=== PATIENT | male | born 1970 | race African-American/Black ===

== ENCOUNTER 2017-12-10 03:52 | Emergency (ER) | payer MEDICARE, MEDICAID ==
[~2017-12-10] VITALS: Ht 182.9 cm; Wt 98.0 kg
[2017-12-10] MEDS ORDERED: ALBUTEROL2.5 MG/3 M INH (04:08)
[2017-12-10 04:23] VITALS: BP 101/68
[2017-12-10] MEDS ORDERED: IBUPROFEN800 MG ORAL (04:34)
[2017-12-10] MEDS ORDERED: CYCLOBENZAPRINE10 MG ORAL (04:34)
[2017-12-10 04:37] VITALS: BP 101/68
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
== END 2017-12-10 04:37 | disposition home or self-care (01) ==
LOC: EMR 04:16
DX: S39.012A Strain of muscle, fascia and tendon of lower back, initial encounter (principal); J45.909 Unspecified asthma, uncomplicated; V43.52XA Car driver injured in collision with other type car in traffic accident, initial encounter; Y92.410 Unspecified street and highway as the place of occurrence of the external cause
CPT/HCPCS: 99284

== ENCOUNTER 2019-06-02 01:16 | Emergency (ER) | payer MEDICARE, MEDICAID ==
[~2019-06-02] VITALS: Ht 185.4 cm; Wt 102.1 kg
[~2019-06-02 01:16] MED LIST: ALBUTEROL2.5 MG/3 M INH; CYCLOBENZAPRINE10 MG ORAL; IBUPROFEN800 MG ORAL
[2019-06-02] MEDS: Albuterol/Ipratropium 3ml neb HHN SCH ×3 (01:34→01:55)
--- NOTE | 2019-06-02 01:45 | NUR ---
ED Nurse Note: Recieved pt on guranalisa awake, alert and oriented x 4, pt here from home with c/o sob x 2-3 days, pt has asthma, deneis fevers, pain, nausea or vomiting or any other complaints or discomforts, tp gowned and placed on monitoring, o2 sat=97%, wheezes heard bilat, will continue to closely monitor.
--- NOTE | 2019-06-02 02:43 | NUR ---
ED Nurse Note: patient resting in bed with nad. AO4. respiration even and unlabored. vss
[2019-06-02 02:44] VITALS: BP 114/79
--- NOTE | 2019-06-02 02:45 | Diagnostic Imaging Report ---
EXAM: XR Chest, 1 View CLINICAL HISTORY: SOB TECHNIQUE: Frontal view of the chest. COMPARISON: No relevant prior studies available. FINDINGS: Lungs: No consolidation or mass. Pleural space: No acute findings Heart: No cardiomegaly. Mediastinum: Unremarkable. Bones/joints: No acute findings. IMPRESSION: No acute cardiopulmonary process.
[2019-06-02] MEDS ORDERED: Albuterol ud Inhalation HHN ONE (03:00)
--- NOTE | 2019-06-02 03:00 | NUR ---
ED Nurse Note: RT AT BEDSIDE FOR BREATHING TX.
[2019-06-02] MEDS ORDERED: PREDNISONE20 MG ORAL (03:34)
[2019-06-02] MEDS ORDERED: ALBUTEROL SULF8.5 GM INH (03:34)
--- NOTE | 2019-06-02 03:36 | Emergency Room Report ---
History of Present Illness General Chief Complaint: Upper Respiratory Illness Present Illness [facility] Disclaimer: Please note that this report is being documented using DRAGON technology. This can lead to erroneous entry secondary to incorrect interpretation by the dictating instrument. HPI: Is a 40-year-old male with history of asthma presenting for evaluation of shortness of breath. Patient has been feeling increased shortness of breath with a nonproductive cough for the past 7 days however proximal me 3 days ago he ran out of his albuterol inhaler has had increasing symptoms. He denies fever. Noted increased wheezing today and difficulty breathing prompting him to call emergency medical services. No recent steroid use. Otherwise denies any abdominal pain, vomiting, skin rash or other change in his health PMH: Asthma PSH: Ear surgery Allergies: Denies Social Hx: Denies drug or alcohol abuse Allergies: Coded Allergies: No Known Allergies (Unverified , 12/10/17) Nursing Documentation-PMH Hx Asthma: Yes Review of Systems All Other Systems: negative except mentioned in HPI Physical Exam Vital Signs Date Time Temp Pulse Resp B/P (MAP) Pulse Ox O2 Delivery O2 Flow Rate FiO2 06/02/19 01:23 98.4 85 20 127/77 (94) 96 Room Air 06/02/19 01:33 21 General: Awake and alert, mild distress HEENT: NC/AT. EOMI. Neck: Supple, trachea midline Chest Wall: No tenderness, no deformity Cardiovascular: RRR. S1 and S2 normal. No murmur appreciated Resp: Increased work of breathing. Diffuse wheezes and crackles at the bases. No stridor. Intermittent cough during exam. Abdomen: Abdomen is soft, nondistended. Nontender Skin: Intact. No abrasions, laceration or rash over the exposed skin MSK: Normal tone and bulk. Moving all extremities. No obvious deformity. Neuro: Awake and alert. Mentating appropriately. Medical Decision Making Diagnostic Impression: Primary Impression: Asthma exacerbation ER Course This 40-year-old male presenting for evaluation of shortness of breath. Differential includes was not limited to pneumonia, asthma exacerbation, bronchitis, COPD, pneumothorax, pneumonitis. Of these, asthma exacerbation is most likely. We will start nebulizer treatments and give steroids. X-ray ordered. Patient is overall stable and only mild distress. He has reduced air entry bilaterally though oxygen saturation is normal. Do not believe lab work is indicated at this time but can advance work-up based on imaging results and patient improvement. Chest X-Ray Diagnostic Results Chest X-Ray Diagnostic Results : Chest X-Ray Ordered: Yes # of Views/Limited/Complete: 1 View Indication: Shortness of Breath PA Xray: Interpretation reviewed Interpretation: no consolidation, no effusion, no pneumothorax, no acute cardiopulmonary disease Impression: No acute disease Electronically Signed by: Electronically signed by Dr. Levon Talbert Reevaluation Time: 03:35 Last Vital Signs Date Time Temp Pulse Resp B/P (MAP) Pulse Ox O2 Delivery O2 Flow Rate FiO2 06/02/19 03:18 87 19 100 Room Air 21 85 17 98 06/02/19 02:44 98.4 114/79 Status: improved Reevaluation Impression Patient improved dramatically after receiving 3 DuoNeb treatments and 1 subsequent albuterol. No consolidation, effusion or other major abnormalities appreciated on chest x-ray. Patient will be treated as an outpatient by refilling his albuterol inhaler starting him on 5 days of prednisone. Follow- up with his PMD to discuss this emergency department visit for asthma exacerbation. We discussed reasons to return to the emergency department. He understands and agrees with this treatment plan. Disposition: HOME, SELF-CARE Condition: Improved Scripts Prednisone* (PREDNISONE*) 20 Mg Tablet 40 MG ORAL DAILY for 5 Days, #10 TAB Prov: Levon Talbert MD 06/02/19 Albuterol Sulfate* (ALBUTEROL SULFATE MDI*) 8.5 Gm Hfa.aer.ad 2 PUFF INH Q4H PRN for cough/wheezing, #1 EA 0 Refills Prov: Levon Talbert MD 06/02/19 Referrals: [facility] Patient Instructions: Asthma, Adult Additional Instructions: You are treated for an asthma exacerbation in the emergency department today. Will refill your albuterol inhaler and start you on 5 days of prednisone. Please follow-up with your doctor immediately to discuss this emergency department visit or follow-up with 1 of the doctors at the clinics listed here in your discharge paperwork. If you have any worsening shortness of breath, worsening cough, develop fever, chest pain or any other sudden change in your health please return to the emergency department for reevaluation Levon Talbert MD Jun 02, 2019 03:36
--- NOTE | 2019-06-02 03:45 | NUR ---
ER DISCHARGE NOTE: Patient is cleared to be discharged per ERMD, pt is aox4, on room air, with stable vital signs. pt was given dc and prescription instructions, pt was able to verbalize understanding, pt id band removed without complications. pt is able to ambulate with steady gait. pt took all belongings.
[2019-06-02 03:57] VITALS: BP 114/79
== END 2019-06-02 03:45 | disposition home or self-care (01) ==
LOC: EMR 02:20
DX: J45.901 Unspecified asthma with (acute) exacerbation (principal); Z79.51 Long term (current) use of inhaled steroids
CPT/HCPCS: 71045; 94640; 94664; 99284; J7512; J7620